=== PATIENT | female | born 1995 | race Caucasian/White ===

== ENCOUNTER 2024-06-05 06:55 | Outpatient (CLI) | payer BC, SELFPAY ==
[2024-06-05 07:15] VITALS: BP 144/67; PULSE 104
[2024-06-05 07:20] VITALS: RESP 18; TEMP 36.5
[2024-06-05 07:23] VITALS: BMI 36.5
[2024-06-05 07:26] VITALS: PULSE 85; O2SAT 98
[2024-06-05 07:36] VITALS: BP 117/57; PULSE 83
[2024-06-05 07:59] LABS: Mucous, Urine 0 SEEN /hpf (<or=2+); Red Blood Cells-Urine 0 SEEN /hpf (0-5)
[2024-06-05 08:05] LABS: Color, Urine Yellow (Yellow); Glucose, Dipstick Normal (Normal); Ketone-Dipstick Negative (Negative); Leukocyte Esterase-Dipstick 500 /ul (Negative); Nitrite-Dipstick Negative (Negative); Occult Blood-Urine Negative /ul (Negative); Protein-Dipstick Negative (Negative); Urine Bilirubin Dipstick Negative (Negative); Urine Clarity Sl. Cloudy (Clear); Urine Urobilinogen Normal (Normal)
[2024-06-05 08:21] LABS: Bacteria 1+ /hpf (None Seen); Squamous Epithelial Cells - UA 0-5 SEEN /hpf (5-10); White Blood Cells 5-10 SEEN /hpf (0-5)
--- NOTE | 2024-06-09 09:28 | OB.TRI.NOTE ---
HPI - General General Date of Admission: 09/13/24 Date of Service: 06/05/24 Chief Complaint: decreased movement HPI Narrative MARGY KAYE, is a 28 F who presents @ 25 5/7 weeks gestation with decreased movement. PFSH PFSH Home Medications ?Medication ?Instructions ?Recorded ?Last Taken ?Type aspirin 81 mg chewable tablet 1 tab PO DAILY 06/05/24 06/04/24 08:00 History (Children's Aspirin) Allergy/AdvReac Type Severity Reaction Status Date / Time No Known Allergies Allergy Verified 06/05/24 07:26 Social History Smoking Status: Former smoker NST FHR Rate Baby A Baseline: 130 Variability:: Moderate Accelerations:: 10 x 10 Decelerations:: None NST Reactive:: Appropriate for gestational age Uterine Activity:: no regular ctxs Assessment & Plan (1) 25 weeks gestation of : (2) High-risk in second trimester: (3) Decreased movement affecting management of mother, antepartum:
== END 2024-06-05 08:05 | disposition home or self-care (01) ==
LOC: WPOUT 07:07 → WP 07:08
PROVIDERS: PCP Family Medicine; Referring Provider Advanced Practice Midwife; Visit Provider Advanced Practice Midwife
DX: O36.8120 Decreased fetal movements, second trimester, not applicable or unspecified (principal); O09.92 Supervision of high risk pregnancy, unspecified, second trimester; Z3A.25 25 weeks gestation of pregnancy; Z79.82 Long term (current) use of aspirin; Z87.891 Personal history of nicotine dependence
CPT/HCPCS: 59025; 59050; 81001; 99221; G0378

== ENCOUNTER 2024-08-22 20:54 | Outpatient (CLI) | payer BC, SELFPAY ==
[2024-08-22 21:16] VITALS: PULSE 83; O2SAT 99
[2024-08-22 21:21] VITALS: BP 136/92; PULSE 91
[2024-08-22 21:30] VITALS: BMI 47.7
[2024-08-22 21:40] VITALS: BP 134/78; PULSE 83
[2024-08-22 21:47] LABS: Color, Urine Yellow (Yellow); Glucose, Dipstick Normal (Normal); Ketone-Dipstick Negative (Negative); Leukocyte Esterase-Dipstick 100 /ul (Negative); Nitrite-Dipstick Negative (Negative); Occult Blood-Urine 250 /ul (Negative); Protein-Dipstick 30 mg/dl (Negative); Urine Bilirubin Dipstick Negative (Negative); Urine Clarity Sl. Cloudy (Clear); Urine Urobilinogen Normal (Normal); Urine pH 6.5 (5.0 - 8.0)
[2024-08-22 21:55] LABS: Hematocrit 32.3 % (37-47); Hemoglobin 10.9 g/dL (12.0-15.0); Mean Corp Hgb Conc 33.7 g/dL (32-36); Mean Corpuscular Hgb 26.7 pg (27.0-32.0); Mean Platelet Vol. 10.3 fl (6.2-12.0); Platelet Count 348 K/mm3 (150-450); RBC Distribution Width CV 12.9 % (11.6-14.6); RBC Distribution Width SD 36.7 fl (35.1-43.9); Red Blood Count 4.09 M/mm3 (4.2-5.4); White Blood Count 14.3 K/mm3 (4.4-11.0)
[2024-08-22 21:56] VITALS: BP 126/75; PULSE 82
[2024-08-22 22:11] VITALS: BP 129/72; PULSE 77
[2024-08-22 22:21] LABS: AST(SGOT) 7 U/L (15-37); Alanine Aminotransfer ALT/SGPT 14 U/L (13-56); Creatinine, Serum 0.59 mg/dL (0.55-1.02); EST Glomerular Filtration Rate 130 mL/min (>60); Est Glom Filt Rate - Afr Amer 157 mL/min (>60); Estimated Creatinine Clearance 217.33 ml/min; Uric Acid 4.8 mg/dL (2.6-6.0)
[2024-08-22 22:25] VITALS: BP 127/76; PULSE 78
--- NOTE | 2024-08-23 06:19 | OB.TRI.NOTE ---
HPI - General General Date of Admission: 08/22/24 Date of Service: 08/22/24 Chief Complaint: flank pain HPI Narrative MARGY KAYE, is a 28 F who presents with lower pelvis and flank pain. Blood in her urine. Pain resolved quickly. Large amount of blood on UA. BP elevated at home but ok in triage. LFTS normal. Unable to do pr/cr due to blood in urine. Does have a hx of kidney stones. Maternal Data Information Final NANI: 09/13/24 Gestational age: 36+6 PFSH PFSH Home Medications ?Medication ?Instructions ?Recorded ?Last Taken ?Type aspirin 81 mg chewable tablet 1 tab PO DAILY 06/05/24 08/22/24 21:27 History (Children's Aspirin) Allergy/AdvReac Type Severity Reaction Status Date / Time No Known Allergies Allergy Verified 08/22/24 21:26 Social History Smoking Status: Former smoker History 1 Elective abortions Hx Para 0 Spontaneous abortions Hx # Term Pregnancies Ectopic pregnancies Hx # Pregnancies Multiple births # of living children NST FHR Rate Baby A Baseline: 130 Variability:: Moderate Accelerations:: 15 x 15 Decelerations:: None NST Reactive:: Yes FHR Category:: Category I Uterine Activity:: occasional contraction Assessment & Plan (1) 36 weeks gestation of : (2) Hematuria: QUALIFIERS: Hematuria type: gross Qualified Code(s): R31.0 - Gross hematuria PLAN: Plan Increase hydration Labor precautions
== END 2024-08-22 22:35 | disposition home or self-care (01) ==
LOC: WPOUT 20:55 → WP 20:56
PROVIDERS: PCP Family Medicine; Referring Provider Obstetrics & Gynecology; Visit Provider Obstetrics & Gynecology
DX: O99.891 Other specified diseases and conditions complicating pregnancy (principal); R31.0 Gross hematuria; R10.2 Pelvic and perineal pain; Z3A.36 36 weeks gestation of pregnancy; Z87.442 Personal history of urinary calculi; Z87.891 Personal history of nicotine dependence; Z79.82 Long term (current) use of aspirin
CPT/HCPCS: 36415; 59025; 59050; 81002; 82565; 84450; 84460; 84550; 85027; 87086; 87088; 99221; G0378

== ENCOUNTER 2024-08-25 10:10 | Inpatient (IN) | payer BC, SELFPAY ==
[2024-08-25] VITALS (15 sets, daily range): BP systolic 106–156; BP diastolic 51–95; PULSE 68–116; RESP 15–18; TEMP 36.1–36.8; O2SAT 97–99; BMI 47.2
[2024-08-25] MEDS: Lactated Ringers 1,000 ML 999 ML IV (10:54)
[2024-08-25 11:22] LABS: Absolute Lymphocyte Count 2.23 X10^3/uL (0.83-4.51); Basophil# 0.05 X10^3/uL; Basophil% 0.3 % (0-1); Eosinophil# 0.05 X10^3/uL; Eosinophils% 0.3 % (0-5); Hematocrit 36.3 % (37-47); Hemoglobin 12.2 g/dL (12.0-15.0); Lymphocyte # 2.23 X10^3/ul (0.83-4.51); Lymphocyte % 14.4 % (19-41); Mean Corp Hgb Conc 33.6 g/dL (32-36); Mean Corpuscular Hgb 26.4 pg (27.0-32.0); Mean Corpuscular Volume 78.6 fL (81-99); Mean Platelet Vol. 10.6 fl (6.2-12.0); Monocyte% 7.1 % (0-10); NRBC Flagged by Analyzer 0 % (0-5); Neutrophil % 77.3 % (47-70); Platelet Count 398 K/mm3 (150-450); RBC Distribution Width CV 13.1 % (11.6-14.6); RBC Distribution Width SD 36.8 fl (35.1-43.9); Red Blood Count 4.62 M/mm3 (4.2-5.4); White Blood Count 15.5 K/mm3 (4.4-11.0)
[2024-08-25] MEDS: Acetaminophen 500 MG Tablet 1000 MG PO ×2 (11:46→18:55)
[2024-08-25] MEDS: Lactated Ringers 1,000 ML 150 ML IV (11:47)
[2024-08-25 11:50] LABS: AST(SGOT) 16 U/L (15-37); Alanine Aminotransfer ALT/SGPT 14 U/L (13-56); Creatinine, Serum 0.54 mg/dL (0.55-1.02); EST Glomerular Filtration Rate 143 mL/min (>60); Est Glom Filt Rate - Afr Amer 173 mL/min (>60); Estimated Creatinine Clearance 235.92 ml/min; Uric Acid 5.1 mg/dL (2.6-6.0)
--- NOTE | 2024-08-25 11:57 | PCM.HP.BLA ---
History and Physical Date of Admission: 08/25/24 DATE OF SERVICE: August 25, 2024 PROBLEM: 37 week gestation, gHTN, obesity, accelerate growth, patient request for a primary section PAST SURGICAL HISTORY: PAST SURGICAL HISTORY PAST SURGICAL HISTORY Procedure Laterality Date ? BACK SURGERY HX 05/12/2023 Herniated/bulging disc removed ? TOOTH EXTRACTION wisdom teeth PAST MEDICAL HISTORY: PAST MEDICAL HISTORY No past medical history on file. SUBJECTIVE: See quick note SOCIAL HISTORY: SOCIAL HISTORY Social History Tobacco Use ? Smoking status: Never ? Smokeless tobacco: Never Vaping Use ? Vaping status: Never Used Substance Use Topics ? Alcohol use: Not Currently ? Drug use: Never ALLERGIES ALLERGIES No Known Allergies Current Outpatient Medications on File Prior to Visit Medication Sig ? vit no.124/iron/folic ( VITAMIN ORAL) Take 1 tablet by mouth once daily. ? aspirin, enteric coated (ECOTRIN LOW STRENGTH) 81 mg EC tablet Take 1 tablet by mouth once daily. ? fexofenadine HCl (MUCINEX ALLERGY ORAL) Take by mouth as needed. (Patient not taking: Reported on 08/14/2024) No current facility-administered medications on file prior to visit. OBJECTIVE: VITALS: BP 122/82 Wt (!) 140.9 kg (310 lb 9.6 oz) LMP 12/08/2023 (Approximate) BMI 47.23 kg/m? HEENT: Normocephalic, atraumatic. SKIN: No lesions. CHEST: Good air exchange. HEART: Regular rate and rhythm. BACK: Nontender ABDOMEN: Obese. ASSESSMENT: pre op, 37 week gestation, gHTN, obesity, accelerate growth, patient request for primary section PLAN: 1) Discussed r/b/a section and patient desires to proceed. Discussed gHTN and early term delivery. Discussed limitations with growth ultrasound and reviewed induction of labor. Discussed risks of macrosomia. All questions answered. The rationale for the proposed surgery was discussed in addition to risks, benefits, and alternatives. General pre- and post-operative care was reviewed. Questions were answered. After discussion, the patient indicated a desire to proceed with the planned surgery.
[2024-08-25] MEDS: Sodium Citrate/Citric Acid 30 ML UDC PO (12:08)
[2024-08-25] MEDS: Cefazolin 3 GM in Syringe 1 EACH IV (12:31)
[2024-08-25 12:39] LABS: Protein, Urine (Random) 20.7 mg/dL (<11.9); Protein:Creat Ratio 201 mg/g CRE (0-200)
--- NOTE | 2024-08-25 13:13 | OP.PCM_ITS ---
Maternal Data Information Final NANI: 09/13/24 Gestational age: 37 2/7 Operative Report (OB) Cecarean Details Procedure Type: low transverse Date of Procedure: 08/25/24 Procedure Start Time: 12:45 Procedure Stop Time: 13:15 Time of Delivery: 12:48 Pre-Operative Diagnosis: Other Other Pre-Operative diagnosis: Suspected macrosomia, gestational hypertension, elective primary c/s Post-Operative Diagnosis: Same as Pre-operative diagnosis Classification: Scheduled Type of Anesthesia: Spinal Antibiotic Given: Ancef 3 grams IV x1 Drain: Franklin to straight drain Estimated Blood Loss: 600 Fluids Replaced: 1000 cc Findings Description of surgery: The patient was taken to the operating room. She was prepped and draped in the dorsal supine position and Nina straps were placed to help protect the pannus. A Pfannenstiel skin incision was made approximately 2 cm above the symphysis pubis and carried through to underlying layer fascia with the scalpel. The fascia was incised incised in the midline and extended laterally with the Umana scissors. The fascia was dissected off the rectus muscles with blunt and sharp dissection. The rectus muscles were in the midline and the peritoneum was entered bluntly. The peritoneal incision was stretched and the Sung O retractor was placed. Care was taken not to entrap any peritoneal contents under the retractor. The uterine incision was made in a low transverse fashion with the scalpel and extended superiorly and inferiorly with blunt dissection. The amniotic membranes were ruptured bluntly and clear amniotic fluid returned. The infant's head was brought to the incision in the flexed position and delivered without difficulty. The remainder of the infant was delivered with gentle traction and fundal pressure in the standard fashion. The mouth and nares were bulb sucti oned. The cord was clamped and cut as the was stimulated. Cord clamping was delayed 30 seconds. The was handed off to the waiting nursing staff. The placenta was delivered with fundal massage and gentle traction in the standard fashion. The uterus was exteriorized and cleared of all clots and debris. The cervix was dilated with a ring forcep. The uterine incision was closed with #1 Vicryl in a running locked fashion. The incision was examined and was found to be hemostatic. Some Emigdio was placed over the incision. The uterus was placed back into the peritoneal cavity and hemostasis was again confirmed. The rectus muscles were examined and any bleeding was Bovie cauterized. The parietal peritoneum and rectus muscles were closed en bloc with an 0 Vicryl running suture. The rectus fascia was examined and any bleeding was Bovie cauterized and the rectus fascia was closed with looped #1 PDS suture in a running standard fashion. The subcutaneous tissue was examining and any bleeding was Bovie cauterized. The subcutaneous tissue was reapproximated with 3-0 Vicryl suture. The skin was closed in a subcuticular fashion by the CENTRAL SUPPLY TECHNICIAN SUPERVISOR with me present in the labor and delivery suite. I performed the remainder of the procedure with assistance. All sponge, lap, and needle counts were correct. The patient was taken to her room for recovery in a stable condition. 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
[2024-08-25] MEDS: 0.9% Saline Lock 10 ML Syringe IV ×3 (13:56→22:15)
[2024-08-25] MEDS: Ketorolac 30 MG/ML Syringe IV ×2 (13:56→22:14)
[2024-08-25] MEDS: Oxytocin 15 Units/NS 250ml 15 UNITS/250 ML IV.SOLN 83 UNITS IV (14:00)
[2024-08-25] MEDS: HYDROmorphone 1 MG/ML Syringe IV (14:37)
[2024-08-25] MEDS: Rho(D) Immune Globulin 300 MCG (1500 Unit) Syringe IV (17:58)
[2024-08-26 00:17] VITALS: BP 110/66; PULSE 85; RESP 15; TEMP 36.2; O2SAT 98
[2024-08-26] MEDS: Enoxaparin 40 MG/0.4 ML Syringe SC ×2 (02:03→13:38)
[2024-08-26] MEDS: Acetaminophen 500 MG Tablet 1000 MG PO ×4 (02:03→20:27)
[2024-08-26 04:02] LABS: Hematocrit 30.1 % (37-47); Hemoglobin 10.1 g/dL (12.0-15.0); Mean Corp Hgb Conc 33.6 g/dL (32-36); Mean Corpuscular Hgb 26.6 pg (27.0-32.0); Mean Corpuscular Volume 79.4 fL (81-99); Mean Platelet Vol. 10.3 fl (6.2-12.0); Platelet Count 296 K/mm3 (150-450); RBC Distribution Width CV 13.2 % (11.6-14.6); RBC Distribution Width SD 37.1 fl (35.1-43.9); Red Blood Count 3.79 M/mm3 (4.2-5.4); White Blood Count 13.6 K/mm3 (4.4-11.0)
[2024-08-26 04:57] VITALS: BP 123/63; PULSE 78; RESP 14; TEMP 36.1; O2SAT 96
[2024-08-26] MEDS: Ketorolac 30 MG/ML Syringe IV (05:14)
[2024-08-26] MEDS: 0.9% Saline Lock 10 ML Syringe IV (05:15)
--- NOTE | 2024-08-26 06:37 | PN.OBGYN_ITS ---
Subjective Subjective Pain well-controlled. Average lochia. No nausea or vomiting. Tolerating regular diet. Objective Data Objective Data Vital Signs: Vital Signs Temp Pulse Resp BP Pulse Ox O2 Del Method 97.0 F L 78 14 123/63 H 96 Room Air 08/26/24 04:57 08/26/24 04:57 08/26/24 04:57 08/26/24 04:57 08/26/24 04:57 08/26/24 04:57 Oxygen Delivery Method Room Air Weight: 140.8 kg Body Mass Index (BMI) 47.2 Intake & Output: Intake and Output for Last 24 Hours 08/24/24 08/25/24 08/26/24 23:59 23:59 23:59 Intake Total 1347.5 / 1347.5 Output Total 1650 / 1650 300 / 300 Balance -302.5 / -302.5 -300 / -300 Lab / Micro Data 08/26/24 03:50 08/25/24 11:00 Labs: Laboratory Results - last 24 hr 08/25/24 11:00: WBC 15.5 H, RBC 4.62, Hgb 12.2, Hct 36.3 L, MCV 78.6 L, MCH 26.4 L, MCHC 33.6, RDW Std Deviation 36.8, RDW Coeff of Dane 13.1, Plt Count 398, MPV 10.6, Immature Gran % (Auto) 0.600, Neut % (Auto) 77.3 H, Lymph % (Auto) 14.4 L, [place] % (Auto) 7.1, Eos % (Auto) 0.3, Baso % (Auto) 0.3, Absolute Neuts (auto) 12.0 H, Absolute Lymphs (auto) 2.23, Nucleated RBC % 0, Creatinine 0.54 L, Estim Creat Clear Calc 235.92, Est GFR (MDRD) Af Amer 173, Est GFR (MDRD) Non-Af 143, Uric Acid 5.1, AST 16, ALT 14, Blood Type A NEGATIVE, Antibody Screen NEGATIVE 08/25/24 12:04: U Random Total Protein 20.7 H, Urine Creatinine 103.00, P rotein/Creatinin Ratio 201 H 08/25/24 15:30: Screen NEGATIVE, Baby's Blood Type A POSITIVE, Baby's RACHEL NEGATIVE 08/26/24 03:50: WBC 13.6 H, RBC 3.79 L, Hgb 10.1 L, Hct 30.1 L, MCV 79.4 L, MCH 26.6 L, MCHC 33.6, RDW Std Deviation 37.1, RDW Coeff of Dane 13.2, Plt Count 296, MPV 10.3 Physical Exam Const alert General Appearance: cooperative GI GI Narrative: soft, moderate distention, fundus firm, appropriately tender. Abdominal bandage clean dry and intact Assessment & Plan (1) Gestational hypertension without significant proteinuria during in third trimester, antepartum: (2) delivery delivered: PLAN: Postoperative day #1 status post primary section. Patient and are doing well. Working on breast-feeding. Discussed with the patient her blood pressures are stable now but may tend to trend up on postoperative day 2 or 3. Routine postoperative care today. She is not currently on any blood pressure medications but will initiate these as needed if blood pressures trend up. No signs or symptoms of preeclampsia today. (3) Maternal obesity syndrome in third trimester: (4) Adult BMI 45.0-49.9 kg/sq m: (5) macrosomia during in third trimester: (6) High-risk in third trimester: (7) 37 weeks gestation of :
[2024-08-26 08:00] VITALS: BP 132/91; PULSE 90; RESP 16; TEMP 36.1; O2SAT 98
[2024-08-26] MEDS: Senna/Docusate Sodium 1 Tablet PO (08:09)
[2024-08-26 09:53] LABS: Syphilis Antibodies Non-reactive
[2024-08-26] MEDS: Naproxen 500 MG Tablet PO ×2 (11:03→18:26)
[2024-08-26] MEDS: SimETHICONE 80 MG Chewable Tablet PO (11:03)
[2024-08-26 14:29] VITALS: BP 143/75; PULSE 69; RESP 18; TEMP 35.6; O2SAT 100
[2024-08-26 18:24] VITALS: BP 145/91; PULSE 84; RESP 18; TEMP 35.7; O2SAT 99
[2024-08-26] MEDS: NIFEdipine 30 MG Tablet PO (19:02)
[2024-08-26 20:00] VITALS: BP 137/88; PULSE 67; RESP 16; TEMP 36.1; O2SAT 99
[2024-08-27] MEDS: Enoxaparin 40 MG/0.4 ML Syringe SC (01:12)
[2024-08-27] MEDS: Acetaminophen 500 MG Tablet 1000 MG PO ×2 (03:48→09:59)
[2024-08-27 03:55] VITALS: BP 135/73; PULSE 72; RESP 16; TEMP 36.6; O2SAT 99
[2024-08-27] MEDS: Naproxen 500 MG Tablet PO (06:53)
[2024-08-27 08:54] VITALS: BP 137/81; PULSE 78; RESP 20; TEMP 36.1; O2SAT 98
[2024-08-27] MEDS: Senna/Docusate Sodium 1 Tablet PO (09:59)
--- NOTE | 2024-08-27 10:40 | PCM.PN.OB ---
Subjective Subjective Patient is doing well this morning. She reports an off-and-on headache that does not persist. The headache is mostly in the back of her head and neck, and starts in her shoulders. She reports she has not been drinking as much caffeine as usual for her. She denies vision changes, malaise, nausea, vomiting with the headache. She has been ambulating and voiding without difficulty. Pain is well-controlled. Lochia is normal. She denies any chest pain, shortness of breath, leg pain, lightheadedness, dizziness. She desires discharge to home today. Objective Data Objective Data Vital Signs: Vital Signs Temp Pulse Resp BP Pulse Ox O2 Del Method 97.0 F L 78 20 H 137/81 H 98 Room Air 08/27/24 08:54 08/27/24 08:54 08/27/24 08:54 08/27/24 08:54 08/27/24 08:54 08/27/24 08:54 Oxygen Delivery Method Room Air Weight: 310 lb 6.574 oz Body Mass Index (BMI) 47.2 Intake & Output: Intake and Output for Last 24 Hours 08/25/24 08/26/24 08/27/24 23:59 23:59 23:59 Intake Total 1347.5 / 1347.5 Output Total 1650 / 1650 750 / 750 Balance -302.5 / -302.5 -750 / -750 Lab / Micro Data 08/26/24 03:50 08/25/24 11:00 Physical Exam Const alert and no apparent distress General Appearance: comfortable HEENT normocephalic Resp normal respiratory effort GI soft to palpation, non-tender and non-distended GI Narrative: dressing intact with some shadowing Assessment & Plan (1) delivery delivered: PLAN: The patient is postoperative day 2 from a section. She is doing well. Pain is well-controlled. She does have an off and on headache. Procardia was started last night and BP's have been controlled. Low suspicion that headache is associated with pre eclampsia given her description of the headache, and that it does not persist. Discussed with patient staying another night, but she would like discharge if possible. Discussed importance of blood pressure monitoring and monitoring of symptoms at home, and reviewed reasons to call. Will send rx for BP cuff. Discussed she needs a blood pressure check in the office tomorrow, and will message office staff to call patient tomorrow morning to check on patient and for follow up.
--- NOTE | 2024-08-27 10:48 | DCINST_ITS ---
Discharge Instructions Diet Discharge Diet: No restrictions DC O2, CPAP, BIPAP needs Home O2 Discharge instructions: No Dressing / Incision Discharge Activity: May Drive (once you feel strong enough to slam on a car brake or turn a steering wheel sharply) and May Shower May resume sexual activity in: 6 weeks (nothing in the vagina and no soaking in water) Ice area for (Minutes): 15 Weight Bearing Status: Weight bearing as tolerated Lifting Restrictions: nothing heavier than baby Dressing / Incision Call your doctor if your incision/area has: Continuous Slow Oozing, Sudden Increased Bleeding, Increased Pain/ Swelling, Increased Redness, Foul Smelling Discharge and Swelling at the incision site Call your doctor if you observe: Fever of 101 or Higher, Coldness, Increased Pain, Numbness or Tingling, Inability to urinate, Inability to have a bowel move ment, Using more than 1 pad per hour, Shortness of breath, Dizziness, Fainting spells, Swelling in the ankles, Chest pain, Increased palpitations (irregular heartbeat), Calf discomfort and Uncontrolled pain Suture Line Care: Avoid Pulling/Pushing and Avoid Pinching/Bending Remove Dressing in: 5 days Cleanse incision/area with: Soap & Water Follow Up Care Please Follow Up With: Yuko Yeager MD When: 1 day for a blood pressure check- if you do not hear from the office by 10 AM please call 6 weeks for a exam Test Results: Test results from this visit will be discussed in further detail at your follow- up appointment, if applicable. Discharge Plan Admission Admit Date/Time: 08/25/24 10:10 Primary Reason for Your Visit: delivery Attending Provider: Yuko Yeager Primary Care Provider: Teddy Estrada Instructions Patient Instructions: Understanding Preeclampsia, After a Discharge Orders/Prescriptions Prescriptions: New nifedipine 30 mg Tablet Extended Release 24hr 30 mg PO Q24H Qty: 30 2RF (DME) Blood Pressure Cuff Misc See Rx Instructions .Route Qty: 1 0RF Rx Instructions: As directed Discontinued aspirin [Children's Aspirin] 81 mg tablet,chewable 1 tab PO DAILY Referrals / Follow Up: Teddy Estrada DO [Primary Care Provider] - Disposition Disposition (needs filled in before D/C Order can be placed): Home, Self Care
--- NOTE | 2024-08-27 10:50 | PCM.DC.SUM ---
Providers Date of Admission: 08/25/24 Date of Discharge: 08/27/24 Primary Care Physician: Dr. Teddy Estrada DO Reason For Visit: PRIMARY Diagnosis Discharge Diagnosis (1) delivery delivered: Status: Acute Code(s): O82 - Encounter for delivery without indication Plan: The patient is postoperative day 2 from a section. She is doing well. Pain is well-controlled. She does have an off and on headache. Procardia was started last night and BP's have been controlled. Low suspicion that headache is associated with pre eclampsia given her description of the headache, and that it does not persist. Discussed with patient staying another night, but she would like discharge if possible. Discussed importance of blood pressure monitoring and monitoring of symptoms at home, and reviewed reasons to call. Will send rx for BP cuff. Discussed she needs a blood pressure check in the office tomorrow, and will message office staff to call patient tomorrow morning to check on patient and for follow up. Medications at Discharge Home Medications miscellaneous medical supply (Blood Pressure Cuff) #1 ea 08/27/24 nifedipine 30 mg tablet,extended release 24 hr 30 mg PO Q24H #30 tabs 08/27/24 Hospital Course Operations section Summary of Care Provided Minutes Spent on Discharge: 15 Hospital Course: Patient was admitted to the hospital with gestational hypertension at 37 week gestation for a primary for suspected macrosomia. See operative report for details for the section. On postoperative day 1 she was started on Procardia for blood pressure control. She was discharged home in good condition on post operative day 2, and blood pressures were well-controlled on the Procardia. She was discharged home with a blood pressure cuff and instructed to continue blood pressure monitoring at home. She was instructed to follow-up in the office the day after discharge for blood pressure check. Weight / BMI Weight Weight: 310 lb 6.574 oz Body Mass Index (BMI) 47.2 ABG / Lab / Microbiology Data 08/26/24 03:50 08/25/24 11:00 D/C Instructions Discharge Diet: No restrictions May resume sexual activity in: 6 weeks (nothing in the vagina and no soaking in water) Ice area for (Minutes): 15 Weight Bearing Status: Weight bearing as tolerated Call your doctor if your incision/area has: Continuous Slow Oozing, Sudden Increased Bleeding, Increased Pain/ Swelling, Increased Redness, Foul Smelling Discharge and Swelling at the incision site Call your doctor if you observe: Fever of 101 or Higher, Coldness, Increased Pain, Numbness or Tingling, Inability to urinate, Inability to have a bowel movement, Using more than 1 pad per hour, Shortness of breath, Dizziness, Fainting spells, Swelling in the ankles, Chest pain, Increased palpitations (irregular heartbeat), Calf discomfort and Uncontrolled pain Suture Line Care: Avoid Pulling/Pushing and Avoid Pinching/Bending Cleanse incision/area with: Soap & Water DC O2, CPAP, BIPAP Needs Home O2 Discharge instructions: No Please Follow Up With: Yuko Yeager MD When: 1 day for a blood pressure check- if you do not hear from the office by 10 AM please call 6 weeks for a exam Meaningful Use Info Meaningful Use Meaningful Use Diagnoses (Choose all that apply): None applicable Ischemic Stroke Statin Dosing Therapy Reference: STATIN DOSE THERAPY REFERENCE: * Patients > 75 years receive moderate or high dose statin therapy. * Patients 75 years or YOUNGER should receive HIGH intensity statin dose unless contraindicated. You will be required to document reason for non-treatment if statin daily dose does not meet guidelines. HIGH DOSE STATIN THERAPY DAILY Atorvastatin > than or = to 40 mg Rosuvastatin > than or = to 20 mg Amlodipine + Atorvastatin > than or = to 2.5/40 mg Ezetimibe + Simvastatin 10/80 mg Simvastatin 80mg Discharge Plan Admission Admit Date/Time: 08/25/24 10:10 Primary Reason for Your Visit: delivery Attending Provider: Yuko Yeager Primary Care Provider: Teddy Estrada Instructions Patient Instructions: Understanding Preeclampsia, After a Discharge Orders/Prescriptions Prescriptions: New nifedipine 30 mg Tablet Extended Release 24hr 30 mg PO Q24H Qty: 30 2RF (DME) Blood Pressure Cuff Misc See Rx Instructions .Route Qty: 1 0RF Rx Instructions: As directed Discontinued aspirin [Children's Aspirin] 81 mg tablet,chewable 1 tab PO DAILY Referrals / Follow Up: Teddy Estrada DO [Primary Care Provider] - Disposition Disposition (needs filled in before D/C Order can be placed): Home, Self Care
[2024-08-27 12:00] VITALS: BP 134/74; PULSE 77; RESP 18; TEMP 36.4; O2SAT 99
== END 2024-08-27 13:35 | disposition home or self-care (01) | DRG 788 ==
PROVIDERS: Obstetrics & Gynecology; Admitting Provider Obstetrics & Gynecology; PCP Family Medicine; Referring Provider Obstetrics & Gynecology; Visit Provider Obstetrics & Gynecology
DX: O36.63X0 Maternal care for excessive fetal growth, third trimester, not applicable or unspecified (principal); O99.214 Obesity complicating childbirth; O13.4 Gestational [pregnancy-induced] hypertension without significant proteinuria, complicating childbirth; Z37.0 Single live birth; Z79.82 Long term (current) use of aspirin; Z3A.37 37 weeks gestation of pregnancy; O99.893 Other specified diseases and conditions complicating puerperium; R51.9 Headache, unspecified